=== PATIENT | female | born 2000 | race Caucasian/White ===

== ENCOUNTER 2022-05-25 16:26 | Inpatient (IN) | payer OTHER ==
[~2022-05-25] VITALS: Ht 160 cm; Wt 81.6 kg
[2022-05-25] MEDS ORDERED: PRENATAL TABLE1 EAC3 PO (17:00)
== END 2022-05-29 11:14 | disposition home or self-care (01) | DRG 833 ==
LOC: LDR 16:26 → OB/GYN 05-26 13:20
PROVIDERS: ADMIT Obstetrics & Gynecology; ATTEND Obstetrics & Gynecology
PROC: 4A1HXCZ Monitoring of Products of Conception, Cardiac Rate, External Approach (ICD-10-PCS; principal; 2022-05-25)
DX: O60.02 Preterm labor without delivery, second trimester (principal); Z3A.26 26 weeks gestation of pregnancy; Z20.822 Contact with and (suspected) exposure to COVID-19